=== PATIENT | female | born 1960 | race Caucasian/White ===

== ENCOUNTER 2022-11-06 10:30 | Emergency (ER) | payer BC, SELFPAY ==
[2022-11-06 10:42] VITALS: BP 163/82; PULSE 78; RESP 18; TEMP 37.1; O2SAT 98
[2022-11-06 10:45] VITALS: BP 163/82; PULSE 78; RESP 18; TEMP 37.1; O2SAT 98
--- NOTE | 2022-11-06 11:11 | ED.GENADULT ---
HPI - General Adult General Chief complaint: Urogenital-Female Stated complaint: poss bladder infection Source: patient Mode of arrival: ambulatory Limitations: no limitations History of Present Illness HPI narrative: Patient presents for evaluation of urinary symptoms for last week. Symptoms include dysuria and urinary frequency. No fever, chills, abdominal pain, low back pain, hematuria, vaginal bleeding or discharge. She has a history of urinary tract infections and this feels similar. She is not taking any medication to assist with her symptoms. No additional complaints or concerns. Related Data Allergies Allergy/AdvReac Type Severity Reaction Status Date / Time codeine Allergy Itching Verified 11/06/22 10:45 morphine Allergy Itching Verified 11/06/22 10:45 Review of Systems Review of Systems: CONSTITUTIONAL: Denies fever, chills, or sweats. EYES: Denies visual changes, redness, or discharge. ENT: Denies rhinorrhea, congestion, sore throat, or otalgia. CARDIOVASCULAR: Denies chest pain, palpitations, or edema. RESPIRATORY: Denies cough or dyspnea. GASTROINTESTINAL: Denies abdominal pain, nausea, vomiting, or diarrhea. GENITOURINARY: Reports urinary frequency and dysuria. Denies hematuria. SKIN: Denies rash or itching. MUSCULOSKELETAL: Denies back pain, joint pain, or myalgia. NEUROLOGIC: Denies headache, numbness, dizziness, or weakness. PSYCHIATRIC: Denies anxiety or depression. [facility] Past Medical History Medical History No pertinent past medical history Surgical History Surgical History No pertinent past surgical history Family History Family History Mother Family history non-contributory Social History Social History Smoking status: Former smoker Substance use: never Gender identity (if verbalized by the patient): Female Spiritual care concerns: No Exam Narrative: GENERAL: Well-appearing, well-nourished, and in no acute distress. HEAD: Normocephalic, atraumatic. EYES: PERRLA and EOMI. ENT: Nares clear, no rhinorrhea or epistaxis. Mucous membranes moist. Oropharynx without tonsillar hypertrophy exudate or other lesions. Bilateral TMs pearly lackey nonbulging NECK: Supple. No adenopathy or masses. No carotid bruits or JVD CHEST: Clear to auscultation. No respiratory distress. No wheezes rales or rhonchi HEART: Regular rate and rhythm. No murmur heard. Normal peripheral pulses. ABDOMEN: Soft, nontender, nondistended, normal active bowel sounds. EXTREMITIES: Normal range of motion. No edema. SKIN: Warm, dry, no rash. NEURO: No focal deficits. Alert and oriented x3. PSYCH: Normal mood and affect. Course Course Emergency Course: This is a 62-year-old female that presented for evaluation of urinary symptoms. Urine is nitrite positive. Will treat with Bactrim. Offered Pyridium, which she declined. Increase hydration. Send urine for culture. Go to the ER for worsening symptoms. Follow up with primary this coming week. Patient agreed with plan of care. Level of Care: Express Care Visit Vital Signs Vital signs: Vital Signs Temperature 37.1 C 11/06/22 10:42 Pulse Rate 78 11/06/22 10:42 Respiratory Rate 18 11/06/22 10:42 Blood Pressure 163/82 H 11/06/22 10:42 Pulse Oximetry 98 11/06/22 10:42 Oxygen Delivery Room Air 11/06/22 10:42 Temperature 37.1 C 11/06/22 10:45 Pulse Rate 78 11/06/22 10:45 Respiratory Rate 18 11/06/22 10:45 Blood Pressure 163/82 H 11/06/22 10:45 Pulse Oximetry 98 11/06/22 10:45 Oxygen Delivery Room Air 11/06/22 10:45 Medical Decision Making Vital Signs Vital Signs: Vital Signs Temperature 37.1 C 11/06/22 10:42 Pulse Rate 78 11/06/22 10:42 Respiratory Rate 18 11/06
== END 2022-11-06 11:12 | disposition home or self-care (01) ==
PROVIDERS: Emergency Provider Nurse Practitioner
DX: N39.0 Urinary tract infection, site not specified (principal); Z87.891 Personal history of nicotine dependence
CPT/HCPCS: 81003; 87077; 87086; 87186; 99213; G0463

== ENCOUNTER 2023-10-29 17:11 | Emergency (ER) | payer OTHER, SELFPAY ==
[2023-10-29 17:17] VITALS: BP 156/65; PULSE 89; RESP 16; TEMP 36.9; O2SAT 96
--- NOTE | 2023-10-29 17:23 | ED.WOUNDLAC ---
HPI - Wound/Laceration General Chief Complaint: Wound/Laceration Stated Complaint: Skin Sore/Toe Time Seen by Provider: 10/29/23 17:25 Source: patient, RN notes reviewed and old records reviewed Mode of arrival: ambulatory Limitations: no limitations History of Present Illness HPI narrative: 63-year-old female who presents with complaints of bilateral ingrown toenails on great toes. Patient states is a chronic issue. Patient states wanting to get them cut out prior to the end of the year. Related Data Home Medications Medication Instructions Recorded Confirmed amlodipine 5 mg tablet mg 10/29/23 lovastatin 40 mg tablet mg 10/29/23 Allergies Allergy/AdvReac Type Severity Reaction Status Date / Time codeine Allergy Itching Verified 10/29/23 17:16 morphine Allergy Itching Verified 10/29/23 17:16 Review of Systems Constitutional: Constitutional: Reports no additional constitutional complaints Eyes: Eyes: Reports no additional eye complaints ENT: Reports system reviewed and no additional complaints, except as documented Cardiovascular: Cardiovascular: Reports no additional cardiovascular complaints Respiratory: Respiratory: Reports no additional respiratory complaints Musculoskeletal: Comments: Pain around bilateral great toenails Neurologic: Reports system reviewed and no additional complaints, except as documented [facility] Past Medical History Medical History (Updated 10/29/23 @ 17:40 by Jaz Durant APRN) No pertinent past medical history Surgical History Surgical History No pertinent past surgical history Family History Family History Mother Family history non-contributory Social History Social History Smoking status: Former smoker Substance use: never Gender identity (if verbalized by the patient): Female Spiritual care concerns: No Comments At the time of my signature, I reviewed and agree with the nursing past medical, surgical, social, and family history. There is no relevant family history pertinent to the patient complaint. Exam Const: General: cooperative, healthy appearing, no acute distress and well nourished Nutritional Appearance: well nourished Orientation/consciousness: patient oriented x3 Limitations: no limitations HENMT: Head: normal to inspection and normocephalic Ears: external ears normal, TM's normal bilaterally, mastoids normal and Abnormal EAC present Face/Nose/Sinus: normal facial exam Face and sinus: normal facial exam Mouth: Yes Normal oral and palatal mucosa present, Yes oropharynx normal and Yes moist mucous membranes Throat: posterior oropharynx normal, tonsils normal, uvula midline and no uvular edema Eyes: General: appearance normal, both eyes and all related structures Sclera: sclerae normal Pupils: Equal, round and reactive pupils present Resp: Effort & Inspection: normal respiratory effort, able to speak in complete sentences, no audible wheezes, no cough, no respiratory distress and no retractions Auscultation: clear to auscultation bilaterally, no crackles, no rales, no rhonchi and no wheezes Cardio: Rate: regular rate Rhythm: regular rhythm Skin: General skin exam: normal color and no rashes or lesions noted Nails: yellow and thickened and other ( ingrown toenail noted to right great toe. ) Neuro: General: patient oriented x3 Cranial nerves: Yes Equal, round and reactive pupils present Psych: Appearance: grossly normal Course Course Emergency Course: Some parts of this dictation were generated by voice recognition software and may contain typographical and/or grammatical inaccuracies. Level of Care: Express Care Visit Vital Signs Vital signs: Vital Signs Temperature 98.4 F 10/29/23 17:17 Pulse Rate 89 10/29/23 17:17 Respi
== END 2023-10-29 17:41 | disposition home or self-care (01) ==
PROVIDERS: Emergency Provider Registered Nurse; PCP Family Medicine
DX: L60.0 Ingrowing nail (principal); Z79.899 Other long term (current) drug therapy; Z87.891 Personal history of nicotine dependence
CPT/HCPCS: 99213; G0463